=== PATIENT | female | born 1955 | race Caucasian/White ===

== ENCOUNTER 2017-01-18 10:02 | Emergency (ER) | payer MEDICARE, OTHER ==
[~2017-01-18] VITALS: Ht 154.9 cm; Wt 74.0 kg
[2017-01-18 10:08] VITALS: BP 132/72
== END 2017-01-18 11:54 | disposition home or self-care (01) ==
LOC: ED 11:30
DX: S93.402A Sprain of unspecified ligament of left ankle, initial encounter (principal); X50.1XXA Overexertion from prolonged static or awkward postures, initial encounter; Y93.89 Activity, other specified; Y92.008 Other place in unspecified non-institutional (private) residence as the place of occurrence of the external cause; Y99.8 Other external cause status
CPT/HCPCS: 99284

== ENCOUNTER 2017-05-27 06:32 | Day surgery (SDC) | payer MEDICARE, OTHER ==
[2017-05-25 09:22] VITALS: BP 127/71
[~2017-05-27] VITALS: Ht 160 cm; Wt 73.0 kg
[~2017-05-27 06:32] MED LIST: None per pt
[2017-05-27] MEDS ORDERED: TRANEXAMIC ACID 100 MG/ML, 10ML ONE ×2 (06:34)
[2017-05-27] MEDS ORDERED: KETOROLAC 60 MG/2 ML ONE (06:34)
[2017-05-27] MEDS ORDERED: SODIUM CHLORIDE 0.9% 0 ML ONE (06:35)
[2017-05-27] MEDS ORDERED: ROPIvacaine/PF 0.2%, 20 ML ONE (06:35)
[2017-05-27] MEDS ORDERED: VANCOMYCIN 1,000 MG ONE (06:35)
[2017-05-27] MEDS ORDERED: EPINEPHRINE 1 MG/ML, 1ML ONE ×2 (06:35→07:34)
[2017-05-27] MEDS ORDERED: MIDAZOLAM 1 MG/ML, 2ML ONE (07:23)
[2017-05-27] MEDS ORDERED: FENTANYL PF 100 MCG/2ML ONE (07:23)
[2017-05-27] MEDS ORDERED: LACTATED RINGERS 1,000 ML IV SCH (07:28)
[2017-05-27] MEDS ORDERED: LIDOCAINE 1%, 2ML SQ PRN (07:30)
[2017-05-27] MEDS ORDERED: BUPIVACAINE/PF 0.5% ONE (07:34)
[2017-05-27] MEDS ORDERED: BUPIVACAINE/PF 0.25% ONE (07:34)
[2017-05-27] MEDS ORDERED: DEXAMETHASONE 4 MG/ML, 1ML ONE (07:59)
[2017-05-27] MEDS ORDERED: CEFAZOLIN 1,000 MG ONE (07:59)
[2017-05-27] MEDS ORDERED: PROPOFOL 10 MG/ML, 20ML ONE (07:59)
[2017-05-27] MEDS ORDERED: ONDANSETRON 2MG/ML, 2ML ONE (07:59)
[2017-05-27] MEDS ORDERED: KETOROLAC 30 MG/1 ML ONE (08:09)
[2017-05-27] MEDS ORDERED: FENTANYL PF 100 MCG/2ML IV PRN (08:30)
[2017-05-27] MEDS ORDERED: hydrALAzine 20 MG/ML, 1ML IV PRN (08:30)
[2017-05-27] MEDS ORDERED: HYDROmorphone 1 MG/ML, 1ML IV PRN (08:30)
[2017-05-27] MEDS ORDERED: ONDANSETRON 2MG/ML, 2ML IVPush PRN (08:30)
[2017-05-27] MEDS ORDERED: MEPERIDINE/PF 25MG/0.5ML IVPush PRN (08:30)
[2017-05-27] MEDS ORDERED: METOCLOPRAMIDE 5 MG/ML, 2ML IV PRN (08:30)
[2017-05-27] MEDS ORDERED: OXYcodone 5 MG/5 ML ORAL.SOL UDC PO PRN (08:30)
[2017-05-27] MEDS ORDERED: MIDAZOLAM 1 MG/ML, 2ML IV PRN (08:30)
[2017-05-27] MEDS ORDERED: LABETALOL 5MG/ML, 20ML IV PRN (08:30)
[2017-05-27] MEDS ORDERED: ALBUTEROL/IPRATROPIUM 2.5MG/0.5MG, 3 ML NPPB PRN (08:30)
[2017-05-27] MEDS ORDERED: PROMETHAZINE 25 MG/ML, 1ML IV PRN (08:30)
[2017-05-27] MEDS ORDERED: ACETAMINOPHEN 325 MG TABLET PO PRN (08:30)
[2017-05-27] MEDS ORDERED: DIAZEPAM 5 MG/ML, 2ML IVPush PRN (08:30)
[2017-05-27] MEDS ORDERED: ACETAMINOPHEN 325 MG TABLET ONE (08:44)
[2017-05-27] MEDS ORDERED: OXYcodone 5 MG/5 ML ORAL.SOL UDC ONE (08:45)
[2017-05-27] MEDS ORDERED: ACETAMINOPHEN 650 MG/20.3 ML UDC ONE (08:45)
== END 2017-05-27 11:10 ==
LOC: OUT 06:32 → EDSTATUS 10:00 → OUT 11:10
PROVIDERS: ATTEND Orthopaedic Surgery
DX: S83.241A Other tear of medial meniscus, current injury, right knee, initial encounter (principal); K21.9 Gastro-esophageal reflux disease without esophagitis; Z88.0 Allergy status to penicillin; Z88.1 Allergy status to other antibiotic agents; X58.XXXA Exposure to other specified factors, initial encounter; Y93.89 Activity, other specified; Y92.89 Other specified places as the place of occurrence of the external cause; Y99.8 Other external cause status
CPT/HCPCS: 29881; 93005; J0690; J1100; J1885; J2250; J2405; J2704; J3010; J3490; J0171; J2795; J3370

== ENCOUNTER 2017-11-24 14:30 | Emergency (ER) | payer OTHER ==
[~2017-11-24] VITALS: Ht 157.5 cm; Wt 75.4 kg
[2017-11-24] MEDS ORDERED: MECLIZINE CHEWABLE 25 MG TAB PO ONE (15:00)
[2017-11-24] MEDS ORDERED: SODIUM CHLORIDE FLUSH 10ML SYR IVF ONE (15:00)
[2017-11-24] MEDS ORDERED: SODIUM CHLORIDE 0.9% 1,000ML IVBOLUS ONE (15:00)
[2017-11-24] MEDS ORDERED: ONDANSETRON ODT 4 MG PO ONE (15:00)
[2017-11-24 15:05] LABS: BASOPHILS # (AUTO) 0.02 x10^3/uL (0-0.1); BASOPHILS % (AUTO) 0 % (0-1); EOSINOPHILS # (AUTO) 0.17 x10^3/uL (0-0.4); EOSINOPHILS % (AUTO) 2 % (1-7); LYMPHOCYTES # (AUTO) 2.47 x10^3/uL (1-3.4); LYMPHOCYTES % (AUTO) 33 % (22-44); MD NO; MEAN CORPUSCULAR HEMOGLOBIN 27.9 pg (27.0-34.8); MEAN CORPUSCULAR VOLUME 84.6 fL (80-100); MEAN PLATELET VOLUME 8.2 fL (7.4-10.4); MONOCYTES # (AUTO) 0.53 x10^3/uL (0.2-0.8); MONOCYTES % (AUTO) 7 % (2-9); NEUTROPHILS # (AUTO) 4.35 x10^3/uL (1.8-6.8); NEUTROPHILS % (AUTO) 58 % (42-75); PLATELET COUNT 321 x10^3/uL (130-400); RED BLOOD COUNT 4.62 x10^6/uL (3.82-5.3); RED CELL DISTRIBUTION WIDTH 14.6 % (9.6-15.2)
[2017-11-24 15:14] LABS: ALANINE AMINOTRANSFERASE 26 U/L (12-78); ALBUMIN 3.8 g/dL (3.4-5.0); ANION GAP 3 mmol/L (5-15); CHLORIDE 102 mmol/L (98-107); CREATININE 0.95 mg/dL (0.55-1.02)
[2017-11-24 15:16] LABS: ALKALINE PHOSPHATASE 99 U/L (45-117); BILIRUBIN,TOTAL 0.4 mg/dL (0.2-1.0); TOTAL PROTEIN 7.3 g/dL (6.4-8.2)
[2017-11-24] MEDS ORDERED: MECLIZINE CHEWABLE 25 MG TAB ONE (15:46)
[2017-11-24] MEDS ORDERED: ONDANSETRON ODT 4 MG ONE (15:46)
[2017-11-24 19:39] VITALS: BP 125/62
== END 2017-11-24 20:29 | disposition home or self-care (01) ==
LOC: ED 19:13
DX: R51 Headache (principal); R42 Dizziness and giddiness
CPT/HCPCS: 36415; 70450; 70551; 80053; 85025; 93005; 99285; Q0162

== ENCOUNTER 2018-06-17 09:22 | Emergency (ER) | payer OTHER ==
[~2018-06-17] VITALS: Ht 160 cm; Wt 75.4 kg
[2018-06-17 09:31] VITALS: BP 152/76
[2018-06-17 09:57] LABS: BASOPHILS # (AUTO) 0.02 x10^3/uL (0-0.1); BASOPHILS % (AUTO) 0 % (0-1); EOSINOPHILS # (AUTO) 0.11 x10^3/uL (0-0.4); EOSINOPHILS % (AUTO) 2 % (1-7); LYMPHOCYTES # (AUTO) 2.04 x10^3/uL (1-3.4); LYMPHOCYTES % (AUTO) 31 % (22-44); MD NO; MEAN CORPUSCULAR HGB CONC 33.3 g/dL (32.4-35.8); MONOCYTES # (AUTO) 0.39 x10^3/uL (0.2-0.8); MONOCYTES % (AUTO) 6 % (2-9); NEUTROPHILS # (AUTO) 4.09 x10^3/uL (1.8-6.8); NEUTROPHILS % (AUTO) 62 % (42-75); PLATELET COUNT 346 x10^3/uL (130-400); RED BLOOD COUNT 4.71 x10^6/uL (3.82-5.3); RED CELL DISTRIBUTION WIDTH 14.7 % (9.6-15.2)
--- NOTE | 2018-06-17 10:12 | NUR ---
TO ROOM FROM LOBBY. NAD.
--- NOTE | 2018-06-17 10:28 | NUR ---
UA SENT TO LAB. PT AMBULATORY TO RESTROOM W/OUT ASSIST. ED MD DUNCAN AT BEDSIDE FOR EVAL. MEDICAL HX OBTAINED BY PHYSICIAN, FLUENT IN [facility].
[2018-06-17 10:31] LABS: ALBUMIN 3.8 g/dL (3.4-5.0); ANION GAP 3 mmol/L (5-15); CALCIUM 9.2 mg/dL (8.5-10.1); CHLORIDE 109 mmol/L (98-107); CREATININE 0.91 mg/dL (0.55-1.02)
--- NOTE | 2018-06-17 10:34 | NUR ---
PT RESTING IN POSITION OF COMFORT IN [place]. SPOUSE AT BEDSIDE. CALL LIGHT W/IN REACH. PT INSTRUCTED ON USE, VERBALIZED UNDERSTANDING. FALL PRECAUTIONS IN PLACE. PT DENIES NEEDS AT THIS TIME. AWAITING LAB RESULTS.
[2018-06-17 10:44] LABS: MICROSCOPIC AUTO
[2018-06-17 10:54] LABS: CULTURE INDICATED? YES
--- NOTE | 2018-06-17 10:59 | NUR ---
BEDSIDE REPORT TO ED RNS AUDREY LESTER.
[2018-06-17] MEDS ORDERED: [UNRECOGNIZED DRUG - REMARK] (11:00)
[2018-06-17] MEDS ORDERED: CEFTRIAXONE 250 MG ONE (11:13)
[2018-06-17] MEDS ORDERED: CEFTRIAXONE 1,000 MG IM ONE (11:30)
== END 2018-06-17 11:53 | disposition home or self-care (01) ==
LOC: ED 11:47
DX: N39.0 Urinary tract infection, site not specified (principal); K64.5 Perianal venous thrombosis
CPT/HCPCS: 36415; 80048; 81001; 82040; 85025; 87077; 87086; 96372; 99283; J0696; 87186